=== PATIENT | female | born 1995 | race Caucasian/White ===

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

== ENCOUNTER 2017-08-25 12:49 | Emergency (ER) | payer OTHER ==
[~2017-08-25] VITALS: Ht 157.5 cm; Wt 61.2 kg
[2017-08-25 13:13] VITALS: BP 118/79
--- NOTE | 2017-08-25 14:15 | RADIOLOGY REPORT ---
EXAMINATION: XR FINGER, LEFT CLINICAL INFORMATION: Left index finger pain and puncture from dogbite. Evaluate for index finger fracture. COMPARISON: None TECHNIQUE: PA view of the left hand is obtained. Oblique and lateral views of the left index finger are obtained. FINDINGS: There is no fracture or malalignment. There is no radiopaque foreign body. There is diffuse soft tissue swelling of the index finger. IMPRESSION: No fracture or foreign body. Diffuse soft tissue swelling of the index finger.
--- NOTE | 2017-08-25 16:03 | ED UPPER/LOWER EXTREMITY COMPL ---
History of Present Illness General Chief Complaint: Animal/Insect Bite Stated Complaint: BITE BY DOG, L INDEX FINGER LAC? Source: patient Exam Limitations: no limitations Vital Signs & Intake/Output Vital Signs & Intake/Output Vital Signs Date Time Temp Pulse Resp B/P B/P Pulse O2 O2 Flow FiO2 Mean Ox Delivery Rate 08/25 1313 97.0 89 18 118/79 98 Room Air Allergies Coded Allergies: NO KNOWN ALLERGIES (08/01/11) Reconcile Medications No Known Home Medications Triage Note: 21F WAS WALKING IN THE [place] AND WAS BIT BY A DOG ON A LEASH UNKNOWN TO HER. PUNCTURE WOUND TO LEFT INDEX FINGER. DID NOT GET INFORMATION FROM FURNITURE SPRAYER SO UNKNOWN IF DOG UPD ON SHOTS. PT IS NOT UTD ON TETANUS. DECLINES MOTRIN OFFERED Triage Nurses Notes Reviewed? yes Onset: Abrupt Duration: constant Timing: single episode today Severity: mild Severity Numbers: 3 : No Patient currently breastfeeds: No HPI: Patient is a 21-year-old female with an unremarkable past medical history who presents emergency room today for concerns of being at a dog park in which patient was playing with many dogs in which an unknown dog bit patient to the left distal aspect of her second index finger digit of her hand resulting in mild bleeding swelling pain and scratches. Patient states that after the bite she was unable to locate the dog boring machine feeder illicit dogs immunizations are unknown however she states that the dog was acting NORMAL patient's tetanus is unknown Patient is right arm dominant (Tye Stephens) Past History Travel History Traveled to [place] past 21 day No Medical History Any Pertinent Medical History? 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 No (Tye Stephens) Review of Systems Review of Systems Constitutional: Reports: no symptoms. EENTM: Reports: no symptoms. Respiratory: Reports: no symptoms. Cardiovascular: Reports: no symptoms. Gastrointestinal/Abdominal: Reports: no symptoms. Genitourinary: Reports: no symptoms. Musculoskeletal: Reports: no symptoms. Skin: Reports: see HPI. Neurological/Psychological: Reports: no symptoms. Hematologic/Endocrine: Reports: see HPI, bleeding. Immunological: Reports: no symptoms. All Other Systems: Reviewed and Negative (Tye Stephens) Physical Exam Physical Exam General Appearance: no apparent distress, alert, comfortable Head: atraumatic Eyes: Bilateral: normal appearance. Ears, Nose, Throat: hearing grossly normal Neck: normal inspection Cardiovascular/Respiratory: no respiratory distress Peripheral Pulses: 2+ radial (L) Neurologic/Tendon: normal sensation, normal motor functions, normal tendon functions, responds to pain, no evidence tendon injury, no pulse deficit Diagram Hands Front 1) 4 CM LINEAR excoriation with no active bleeding mild decreased active range of motion no exposed bone no exposed tendon 5 out of 5 resisted range of motion with flexion and extension 2) Superficial skin abrasion (Tye Stephens) Progress Differential Diagnosis: arterial insufficiency, compartment syndrome, contusion, dislocation, DVT, fracture, gout, septic arthritis, sprain, tendon injury Plan of Care: On examination no concerns of tendon deficit x-rays resulted I discussed results with patient signs of osseous bone injury. Tetanus will be updated. I discussed with patient the transmission concern of rabies where she was informed due to the dog having unknown immunization history where she was offered rabies prophylaxis treatment however she declined I soaked the injury site with sterile water and Betadine for approximately 10 minutes then I applied bacitracin and bandages to return. Discussed disposition plan with patient who had no questions Diagnostic Imaging: Viewed by Me: Radiology Read. Radiology Impression: no acute abnormality, no fracture Comments: PATIENT: KATHY BACH PRESENT AGE: 21 PATIENT ACCOUNT NO: [id number] : 97 LOCATION: [facility] ORDERING PHYSICIAN: Antony Acevedo DO (TBS) SERVICE DATE: 08/25/17 EXAM TYPE: RAD - XRY-FINGERS, LEFT EXAMINATION: XR FINGER, LEFT CLINICAL INFORMATION: Left index finger pain and puncture from dogbite. Evaluate for index finger fracture. COMPARISON: None TECHNIQUE: PA view of the left hand is obtained. Oblique and lateral views of the left index finger are obtained. FINDINGS: There is no fracture or malalignment. There is no radiopaque foreign body. There is diffuse soft tissue swelling of the index finger. IMPRESSION: No fracture or foreign body. Diffuse soft tissue swelling of the index finger. DICTATED BY: Brando Marquis MD DATE/TIME DICTATED:08/25/171405 WARPER CREELER:CECILIA DATE/TIME TRANSCRIBED:08/25/171405 CONFIDENTIAL, DO NOT COPY WITHOUT APPROPRIATE AUTHORIZATION. <Electronically signed in Other Vendor System> SIGNED BY: Brando Marquis MD [id number] (Tye Stepehns) Departure Departure Disposition: HOME OR SELF CARE Condition: Stable Clinical Impression Primary Impression: Dog bite of index finger Referrals: Albert BERNSTEIN,Heriberto Lopez (PCP/Family) Additional Instructions: As discussed if you note signs of infection redness, pain, swelling, discharge return to emergency room. Begin to apply bacitracin with the bandages provided to the emergency room in case the dressings once a day. Begin [id number] Motrin or Tylenol for pain. Begin the prescription of Augmentin as directed to prevent infection, prescriptions are waiting at [facility] Departure Forms: Customer Survey General Discharge Information Prescriptions: Current Visit Scripts No Known Home Medications (Tye tSephens) Resident Co-Sign Statement Statement: ED Attending supervision documentation- I saw and evaluated the patient. I have also reviewed all the pertinent lab results and diagnostic results. I agree with the findings and the plan of care as documented in the Resident's documentation. x I have reviewed the ED Record and agree with the Resident's documentation. [] Additions or exceptions (if any) to the Resident's note and plan are summarized below: [] (Samantha BERNSTEIN,S[place]yer)
[2017-08-25] MEDS ORDERED: AUGMENTIN 500-1 EACH PO (16:48)
== END 2017-08-25 16:54 ==
LOC: ERH 12:49
DX: S61.251A Open bite of left index finger without damage to nail, initial encounter (principal); W54.0XXA Bitten by dog, initial encounter; Y92.830 Public park as the place of occurrence of the external cause; Y93.9 Activity, unspecified
CPT/HCPCS: 73140-LT; 90471; 90714